=== PATIENT | female | born 1990 | race Caucasian/White ===

== ENCOUNTER 2017-10-13 21:05 | Emergency (ER) | payer MEDICAID, SELFPAY ==
[~2017-10-13] VITALS: Ht 170.2 cm; Wt 54.9 kg
[2017-10-13 21:06] VITALS: BP 118/79
== END 2017-10-13 21:32 | disposition home or self-care (01) ==
LOC: ED 21:26
DX: K02.9 Dental caries, unspecified (principal); K08.89 Other specified disorders of teeth and supporting structures
CPT/HCPCS: 99283

== ENCOUNTER 2019-12-09 18:48 | Emergency (ER) | payer MEDICAID ==
[~2019-12-09] VITALS: Ht 167.6 cm; Wt 58.2 kg
[2019-12-09 19:24] LABS: BASOPHILS # (AUTO) 0.03 x10^3/uL (0-0.1); BASOPHILS % (AUTO) 0 % (0-1); EOSINOPHILS % (AUTO) 1 % (1-7); LYMPHOCYTES # (AUTO) 1.64 x10^3/uL (1-3.4); LYMPHOCYTES % (AUTO) 14 % (22-44); MD NO; MEAN CORPUSCULAR HEMOGLOBIN 28.6 pg (27.0-34.8); MEAN CORPUSCULAR HGB CONC 33.1 g/dL (32.4-35.8); MEAN CORPUSCULAR VOLUME 86.3 fL (80-100); MEAN PLATELET VOLUME 7.6 fL (7.4-10.4); MONOCYTES # (AUTO) 0.59 x10^3/uL (0.2-0.8); MONOCYTES % (AUTO) 5 % (2-9); NEUTROPHILS # (AUTO) 9.19 x10^3/uL (1.8-6.8); NEUTROPHILS % (AUTO) 80 % (42-75); PLATELET COUNT 302 x10^3/uL (130-400); RED BLOOD COUNT 4.29 x10^6/uL (3.82-5.3)
[2019-12-09 19:36] LABS: ALBUMIN 3.6 g/dL (3.4-5.0); ANION GAP 6 mmol/L (5-15); CALCIUM 8.8 mg/dL (8.5-10.1); CHLORIDE 105 mmol/L (98-107); CREATININE 0.68 mg/dL (0.55-1.02)
[2019-12-09] MEDS ORDERED: LIDOCAINE-MPF 1%, 2ML ONE (19:48)
[2019-12-09] MEDS ORDERED: AZITHROMYCIN 250 MG TABLET ONE (19:48)
[2019-12-09] MEDS ORDERED: CEFTRIAXONE 250 MG ONE (19:48)
[2019-12-09] MEDS ORDERED: AZITHROMYCIN 500 MG TABLET PO ONE (20:00)
[2019-12-09] MEDS ORDERED: CEFTRIAXONE 250 MG IM ONE (20:00)
--- NOTE | 2019-12-09 20:01 | NUR ---
PT HAD PELVIC EXAM PERFORMED BY JEMIMA GRIMES. PT MEDICATED ORDERED WITH ABX. URINE SAMPLE OBTAINED AND SENT TO LAB. PT AO X 4. SKIN PWD. RESP EVEN AND UNLABORED. PT REPORTS CONSTANT MILD MID LOWER PELVIC PAIN. PT DENIES N/V/D. PT REPORTS SLIGHT PAIN WITH URINATION. PT ON CONT BP, CARDIAC AND O2 MONITORS. PT AWARE WE ARE WAITING FOR LAB RESULTS. CALL LIGHT WITHIN REACH.
[2019-12-09 20:56] LABS: WET PREP WBCS MANY (FEW)
[2019-12-09 20:58] LABS: CLUE CELLS PRESENT (NONE SEEN)
--- NOTE | 2019-12-09 21:00 | NUR ---
PT CURRENTLY RESTING ON GURNEY. NAD NOTED. SKIN PWD. RESP EVEN AND UNLABORED. PT AWARE WE ARE WAITING FOR LAB RESULTS. PT DENIES NEEDS AT THIS TIME. CALL LIGHT WITHIN REACH. WILL CONT TO MONITOR PT.
[2019-12-09 21:08] LABS: MICROSCOPIC INDICATED
[2019-12-09 21:12] LABS: CULTURE INDICATED? YES
[2019-12-09 21:23] VITALS: BP 121/85
== END 2019-12-09 21:25 | disposition home or self-care (01) ==
LOC: ED 20:31
DX: N73.0 Acute parametritis and pelvic cellulitis (principal); A59.9 Trichomoniasis, unspecified; N76.0 Acute vaginitis; F17.200 Nicotine dependence, unspecified, uncomplicated
CPT/HCPCS: 36415; 80048; 81001; 82040; 84703; 85025; 87086; 87210; 87491; 87591; 87808; 96372; 99283; J0696

== ENCOUNTER 2020-02-05 22:07 | Emergency (ER) | payer MEDICAID ==
[~2020-02-05] VITALS: Ht 170.2 cm; Wt 57.3 kg
--- NOTE | 2020-02-05 22:31 | NUR ---
THIS IS A 29 YO FEMALE COMING IN FOR SORE THROAT/"TONSIL PAIN" X2 DAYS. PATIENT ABLE TO MANAGE SECRETIONS, AIRWAY PATENT. RECENT DX GONORRHEA 1 MONTH AGO. DID PARTICIPATE IN ORAL SEX WITH SAME PARTNER RECENTLY. RIGHT TONSIL VERY SWOLLEN WITH LARGE WHITE PATCHES. ERP IN ROOM FOR EVAL.
[2020-02-05] MEDS ORDERED: CEFTRIAXONE PMX 1GM/50ML 50 ML ONE (22:49)
[2020-02-05] MEDS ORDERED: DEXAMETHASONE 4 MG/ML, 1ML ONE (22:49)
[2020-02-05] MEDS ORDERED: KETOROLAC 30 MG/1 ML ONE (22:49)
[2020-02-05] MEDS ORDERED: SODIUM CHLORIDE 0.9% 1,000ML IVBOLUS ONE (23:00)
[2020-02-05] MEDS ORDERED: DEXAMETHASONE 4 MG/ML, 1ML IVPush ONE (23:00)
[2020-02-05] MEDS ORDERED: CEFTRIAXONE PMX 1GM/50ML 50 ML IV ONE (23:00)
[2020-02-05] MEDS ORDERED: KETOROLAC 30 MG/1 ML IVPush ONE (23:00)
[2020-02-05 23:06] LABS: ANION GAP 6 mmol/L (5-15); CALCIUM 8.3 mg/dL (8.5-10.1); CHLORIDE 106 mmol/L (98-107); CREATININE 0.66 mg/dL (0.55-1.02)
--- NOTE | 2020-02-05 23:08 | NUR ---
PATIENT MEDICATED PER EMAR, TOLERATED WELL. IVF RUNNING.
--- NOTE | 2020-02-05 23:10 | NUR ---
PATIENT TO CT
[2020-02-05] MEDS ORDERED: ONDANSETRON 2MG/ML, 2ML ONE (23:13)
--- NOTE | 2020-02-05 23:29 | NUR ---
UA COLLECTED AND SENT
[2020-02-05] MEDS ORDERED: ONDANSETRON 2MG/ML, 2ML IVPush ONE (23:30)
[2020-02-05 23:39] LABS: MICROSCOPIC INDICATED
[2020-02-05] MEDS ORDERED: OMNIPAQUE 350 MG/ML, 100ML BOTTLE ONE (23:40)
[2020-02-06] MEDS ORDERED: LIDOCAINE 1%-EPI 1:100K, 20ML ONE (00:20)
[2020-02-06] MEDS ORDERED: AZITHROMYCIN 250 MG TABLET ONE (00:20)
[2020-02-06] MEDS ORDERED: BENZOCAINE 20% SPRAY 0.5ML ONE (00:20)
[2020-02-06] MEDS ORDERED: AZITHROMYCIN 500 MG TABLET PO ONE (00:30)
[2020-02-06] MEDS ORDERED: LIDOCAINE 1%-EPI 1:100K, 50ML INFIL ONE (00:30)
[2020-02-06] MEDS ORDERED: BENZOCAINE 20% SPRAY 0.5ML TP ONE (00:30)
[2020-02-06 01:00] VITALS: BP 120/70
[2020-02-06] MEDS ORDERED: ACETAMINOPHEN 500 MG TABLET PO ONE (01:00)
== END 2020-02-06 01:44 ==
LOC: ED 02-06 01:26
DX: J36 Peritonsillar abscess (principal)
CPT/HCPCS: 36415; 42700; 70491; 80048; 81001; 87086; 87491; 87591; 87880; 96365; 96375; 99285; J0696; J1100; J1885; J2405; J7030; Q9967

== ENCOUNTER 2020-04-26 23:16 | Emergency (ER) | payer MEDICAID ==
[~2020-04-26] VITALS: Ht 167.6 cm; Wt 60.0 kg
[2020-04-27 00:02] LABS: BASOPHILS # (AUTO) 0.04 x10^3/uL (0-0.1); BASOPHILS % (AUTO) 0 % (0-1); EOSINOPHILS # (AUTO) 0.22 x10^3/uL (0-0.4); EOSINOPHILS % (AUTO) 2 % (1-7); LYMPHOCYTES # (AUTO) 2.04 x10^3/uL (1-3.4); LYMPHOCYTES % (AUTO) 15 % (22-44); MD NO; MEAN CORPUSCULAR HEMOGLOBIN 29.1 pg (27.0-34.8); MEAN CORPUSCULAR HGB CONC 32.5 g/dL (32.4-35.8); MEAN PLATELET VOLUME 7.4 fL (7.4-10.4); MONOCYTES % (AUTO) 6 % (2-9); NEUTROPHILS # (AUTO) 10.77 x10^3/uL (1.8-6.8); NEUTROPHILS % (AUTO) 78 % (42-75); PLATELET COUNT 318 x10^3/uL (130-400); RED BLOOD COUNT 4.02 x10^6/uL (3.82-5.3); RED CELL DISTRIBUTION WIDTH 14.1 % (9.6-15.2)
[2020-04-27 01:29] LABS: ALANINE AMINOTRANSFERASE 19 U/L (12-78); ALBUMIN 3.2 g/dL (3.4-5.0); ANION GAP 4 mmol/L (5-15); CHLORIDE 107 mmol/L (98-107)
[2020-04-27 01:35] LABS: MICROSCOPIC INDICATED
[2020-04-27 01:46] LABS: ALKALINE PHOSPHATASE 87 U/L (45-117); CREATININE 0.63 mg/dL (0.55-1.02); TOTAL PROTEIN 6.7 g/dL (6.4-8.2)
[2020-04-27 01:47] LABS: CALCIUM 9.3 mg/dL (8.5-10.1)
[2020-04-27 02:04] LABS: BILIRUBIN,TOTAL 0.2 mg/dL (0.2-1.0)
[2020-04-27 03:01] VITALS: BP 122/76
== END 2020-04-27 03:03 | disposition home or self-care (01) ==
LOC: ED 23:30
DX: O03.38 Urinary tract infection following incomplete spontaneous abortion (principal); N93.9 Abnormal uterine and vaginal bleeding, unspecified; R10.31 Right lower quadrant pain; R10.32 Left lower quadrant pain; Z3A.01 Less than 8 weeks gestation of pregnancy
CPT/HCPCS: 36415; 76801; 80053; 81001; 84702; 85025; 86901; 87086; 99284